=== PATIENT | female | born 1985 | race Caucasian/White ===

== ENCOUNTER 2020-07-16 03:10 | Emergency (ER) | payer BC, SELFPAY ==
[2020-07-16 03:36] VITALS: BP 100/65; PULSE 90; RESP 20; TEMP 36.8; O2SAT 99
[2020-07-16] MEDS: LIDOCAINE HCL 1% LOCAL INJ 20 ML VIAL (04:00)
--- NOTE | 2020-07-16 04:08 | ED.FEMALEGU ---
HPI - Female Genitourinary General Chief complaint: OB/Uterine Contractions Stated complaint: cyst Source: patient Mode of arrival: ambulatory Limitations: no limitations History of Present Illness HPI Narrative: is a 35-year-old female that is approximately 5 months presents with a Bartholin's cyst to the right labial fold it is swollen tender currently no drainage it is warm and tender was seen at urgent care 2 days ago and was started on p.o. antibiotics. Patient currently with no fever or chills no nausea vomiting no abdominal pain no dysuria. MD elicited complaint: other ( Bartholin's cyst) Pertinent past history: other ( Bartholin's cyst) Onset (ago): day(s) Severity: moderate Female Urogenital Radiation: Non-Radiating Severity scale (1-10): 8 Quality of pain: aching Consistency: constant Vaginal discharge: none Vaginal bleeding: none Related Data Home Medications Medication Instructions Recorded Confirmed cephalexin 500 mg PO QID 07/16/20 07/16/20 Allergies Allergy/AdvReac Type Severity Reaction Status Date / Time BEESTING Allergy Unknown UNKNOWN Uncoded 10/25/16 21:40 Review of Systems Review of Systems: All systems reviewed & are unremarkable except as noted in HPI and below PMFSH Past Medical History Medical History Bartholin's cyst Exam Const: General: no acute distress and alert Orientation/consciousness: patient oriented x3 HENMT: Head: normal to inspection Eyes: Conjunctivae: conjunctivae normal Pupils: Equal, round and reactive pupils present EOM: EOMs intact bilaterally Neck: Neck: normal visual inspection, no lymphadenopathy and no meningeal signs Lymphatic: no lymphadenopathy noted Chest: Chest palpation & inspection: normal inspection of the chest Resp: Effort & Inspection: normal respiratory effort Auscultation: clear to auscultation bilaterally Cardio: Rate: regular rate Rhythm: regular rhythm GI: GI Palp: Yes Soft to palpation : General: Yes no CVA tenderness Other: Bartholin cyst that is a tender swollen painful warm to touch right labial photic Back/Spine/Pelvis: Back: no CVA tenderness Skin: General skin exam: normal color Rashes: no rashes Neuro: General: patient oriented x3 and moves all extremities Extrem: General: normal to inspection Psych: Mental Status: mental status grossly normal Thought content: Yes Normal thought content present Course Course Emergency Course: patient had incision and drainage of the Bartholin's cyst on the right labial fold patient had quite a bit of pus material drained after I and D a patient felt much better after the procedure. Vital Signs Vital signs: Vital Signs Temperature 36.8 C 07/16/20 03:36 Pulse Rate 90 07/16/20 03:36 Respiratory Rate 07/16/20 03:36 Blood Pressure 100/65 07/16/20 03:36 Pulse Oximetry 99 07/16/20 03:36 Temperature 36.8 C 07/16/20 03:36 Pulse Rate 90 07/16/20 03:36 Respiratory Rate 07/16/20 03:36 Blood Pressure 100/65 07/16/20 03:36 Pulse Oximetry 99 07/16/20 03:36 Procedures Abscess I/D Labial fold: Date of Incision: 07/16/20 Time of Incision: 04:14 Side (if applicable): right Sedation/analgesia: none Local Anesthetic: lidocaine 1% Amount of anesthesia used (mL): 10 Technique: incised with #11 blade Amount of fluid expressed (mL): 15 Irrigation: Yes Packing used?: none I&D Results: Pus and Blood Complications: pain and bleeding Abcess I&D Additional Comments: patient tolerated procedure well did receive 1% lidocaine that MrsAndrea sized the area locally. Critical Care Time Critical Care Time Critical Care Time: No Discharge Plan Discharge Clinical Impression: Bartholin's cyst Patient Disposition: Home, Self-Care Condition: Stable Instructions: Antibiotic Form, Incision and Drainage (E
--- NOTE | 2020-07-16 04:17 | PC.NURSE ---
0400 I&D of Bartholin cyst drained per ERP. Pt. states feeling much relief p drainage. Pt. sent home c gauze for drainage. Advised to call to f/u c her gyne tomorrow.
[2020-07-16 04:18] VITALS: BP 122/65; PULSE 92; RESP 20; O2SAT 100
--- NOTE | 2020-07-16 06:34 | PC.NURSE ---
0415 Verbal consent for no HIV testing, paperwork signed.
== END 2020-07-16 04:23 | disposition home or self-care (01) ==
PROVIDERS: Emergency Provider Emergency Medicine; PCP Family Medicine
DX: N75.0 Cyst of Bartholin's gland (principal)
CPT/HCPCS: 56420; 99282; 99283

== ENCOUNTER 2022-01-31 10:51 | Emergency (ER) | payer BC, SELFPAY ==
[2022-01-31 11:04] VITALS: BP 135/84; PULSE 84; RESP 20; TEMP 36.8; O2SAT 100
--- NOTE | 2022-01-31 11:24 | ED.URI ---
HPI - URI/Sore Throat General Chief Complaint: Upper Respiratory Infection Stated Complaint: Eye Problem/Cough Time Seen by Provider: 01/31/22 11:05 Source: patient and RN notes reviewed Mode of arrival: ambulatory Limitations: no limitations History of Present Illness HPI Narrative: 36-year-old female presents the concern for 2-week history of sinus congestion, drainage. Reports she since began having right ear pain, bilateral red eyes with purulent discharge. She denies taking any [id number] medications. She denies fever, bodies, chills, sweats, shortness of breath. MD elicited complaint: rhinorrhea, nasal congestion and other (Ear pain, eye drainage) Related Data Allergies Allergy/AdvReac Type Severity Reaction Status Date / Time BEESTING Allergy Unknown UNKNOWN Uncoded 01/31/22 11:10 Review of Systems Review of Systems: CONSTITUTIONAL: Denies malaise, chills, sweats, or fever. EYES: Denies visual changes. Reports bilateral thigh redness and purulent discharge. ENT: Reports rhinorrhea, congestion, sinus pain, otalgia. Denies sore throat. CARDIOVASCULAR: Denies chest pain, palpitations, or edema. RESPIRATORY: Denies cough. Denies dyspnea. GASTROINTESTINAL: Denies abdominal pain, nausea, vomiting, diarrhea SKIN: Denies rash or itching. MUSCULOSKELETAL: Denies myalgia. NEUROLOGIC: Denies headache. All systems reviewed & are unremarkable except as noted in HPI and below PMFSH Past Medical History Medical History (Updated 01/31/22 @ 11:29 by Tatiana Cavazos NP) Bartholin's cyst Comments At time of signature, agree with nursing past medical, surgical, social and family history. There is no relevant family history pertinent to the presenting complaint Exam Narrative: GENERAL: Nontoxic-appearing and in no acute distress. HEAD: Normocephalic EYES: PERRLA, bilateral sclera and conjunctive injected with yellow crusted drainage ENT: Nares clear, turbinates edematous and erythematous, discharge. Mucous membranes moist. Left TM pearly pradhan with dull light reflex, right TM erythematous; no tragal tenderness. Oropharynx not erythematous without lesions. Tonsils not enlarged and without exudate, no drooling, no hoarseness, no trismus, uvula midline. NECK: Supple. No lymphadenopathy CHEST: Clear to auscultation, breath sounds equal. No wheezing, rhonchi, rales, or stridor. No respiratory distress, speaks in full sentences. HEART: Regular rate and rhythm. No murmur heard. SKIN: Warm, dry, no rash. NEURO: Alert and oriented x3. PSYCH: Normal mood and affect Course Course Emergency Course: Patient is aware of diagnosis, understands and agrees to treatment plan. Anticipatory guidance given. Patient agrees to follow-up as directed and is aware of reasons to seek care at the emergency department. Portions of this record may have been created with voice recognition software Level of Care: Express Care Visit Vital Signs Vital signs: Vital Signs Temperature 98.3 F 01/31/22 11:04 Pulse Rate 84 01/31/22 11:04 Respiratory Rate 20 01/31/22 11:04 Blood Pressure 135/84 01/31/22 11:04 Pulse Oximetry 100 01/31/22 11:04 Temperature 98.3 F 01/31/22 11:04 Pulse Rate 84 01/31/22 11:04 Respiratory Rate 20 01/31/22 11:04 Blood Pressure 135/84 01/31/22 11:04 Pulse Oximetry 100 01/31/22 11:04 Reviewed. MDM - URI/Sore Throat MDM Narrative Medical decision making narrative: Differential diagnosis considered: Pastor virus, strep pharyngitis, allergic rhinitis, upper respiratory tract infection, sinusitis, rhinosinusitis, nasopharyngitis. viral pharyngitis, otitis media, otitis externa, pneumonia, bronchitis, viral cough syndrome, viral syndrome, and influenza. Exam findings show no acute concerns or changes; patient is non-toxic appearing and is in no distress. Patient is appropriate for outpatient treatment and follow-up. Consideration of the following conditions may be warranted for the presenting problem, t
== END 2022-01-31 11:36 | disposition home or self-care (01) ==
PROVIDERS: Emergency Provider Nurse Practitioner; PCP Family Medicine
DX: H66.001 Acute suppurative otitis media without spontaneous rupture of ear drum, right ear (principal); H10.33 Unspecified acute conjunctivitis, bilateral
CPT/HCPCS: 99213; G0463